=== PATIENT | male | born 1960 | race Caucasian/White ===

== ENCOUNTER → 2016-11-23 | Outpatient (CLI) | payer OTHER ==
[~2016-11-23] MED LIST: ACULAR 0.5100 DROP/5 LEFT EYE; COUMADIN,JANTOVE5 MG PO; DICLOFENAC SODI75 MG PO; DOXYCYCLINE; INDOCIN25 MG PO; KEFLEX500 MG PO; LOVENOX80 MG/0.8 SC; MOBIC7.5 MG PO; NICOTINE PATCH1 EAC2 TD; NOHOMEMEDS; NORTRIPTYLINE H25 MG PO; Naprosyn PO; Neurontin PO; OXYCODONE HCL10 MG PO; OXYCODONE-APAP1 EACH PO; PERCOCET 5/31 TABLET PO; SPIRIVA RESPIMAT4 GM IH; TUDORZA PRESS400 MCG IH; VIGAMOX 0.60 DROP/3 LEFT EYE; ZOLPIDEM TARTRAT5 MG PO
== END | disposition home or self-care (01) ==
LOC: RES 10:00
DX: J98.4 Other disorders of lung (principal)
CPT/HCPCS: 94060; 94726; 94729

== ENCOUNTER 2017-05-04 12:27 | Emergency (ER) | payer OTHER ==
[~2017-05-04] VITALS: Ht 188 cm; Wt 77.8 kg
[2017-05-04 13:34] LABS: BASOPHIL (%) 0.8 % (0-1); EOSINOPHIL (%) 3.3 % (0-5); EOSINOPHIL COUNT 0.2 K/uL (0-0.3); HEMATOCRIT 45.1 % (38.0-50.0); HEMOGLOBIN 15.9 G/DL (12.5-16.6); IMMATURE GRANULOCYTE (%) 0.2 % (0.0-0.7); LYMPHOCYTE (%) 34.3 % (15-42); LYMPHOCYTE COUNT 1.8 K/uL (1.0-2.8); MCH 34.6 PG (29.0-34.0); MCHC 35.3 G/DL (30.0-36.0); MCV 98.3 FL (86-99); MONOCYTE (%) 9.4 % (3-12); MONOCYTE COUNT 0.5 K/uL (0-0.8); NEUTROPHIL COUNT 2.7 K/uL (1.8-6.4); PLATELET COUNT 140 K/uL (156-360); RBC DIS.WIDTH-CV 12.3 % (11.8-14.6); RBC DIS.WIDTH-SD 44.6 % (39-53); RED BLOOD COUNT 4.59 M/uL (4.00-5.50); WHITE BLOOD COUNT 5.2 K/uL (4.1-10.2)
[2017-05-04 13:37] LABS: APPEARANCE CLEAR ((CLEAR)); BILIRUBIN NEGATIVE; BLOOD NEGATIVE; COLOR STRAW ((YELLOW)); GLUCOSE (STRIP) NEGATIVE; KETONES NEGATIVE; LEUKOCYTES NEGATIVE; NITRITE NEGATIVE; PROTEIN (STRIP) NEGATIVE; SPECIFIC GRAVITY 1.008 (1.000-1.030); UROBILINOGEN 0.2 MG/DL (0.2-1.0)
[2017-05-04 13:43] LABS: ALBUMIN 4.4 g/dL (3.2-4.8); CHLORIDE 103 mEq/L (99-109); SODIUM 138 mEq/L (136-147)
[2017-05-04 13:46] LABS: GLUCOSE 101 mg/dL (70-99); TOTAL PROTEIN 7.4 g/dL (6.4-8.3)
[2017-05-04 13:48] LABS: TOTAL BILIRUBIN 1.1 mg/dL (0.0-1.0)
[2017-05-04 13:49] LABS: ALKALINE PHOSPHATASE 81 IU/L (3-129); CREATININE 0.8 mg/dL (0.6-1.3); GFR ESTIMATE (CALCULATED) > 59 mL/min/ (58.99-99999)
[2017-05-04 13:50] LABS: UREA NITROGEN (BUN) 10 mg/dL (9-23)
[2017-05-04 13:51] LABS: AST (GOT) 62 IU/L (2-34)
[2017-05-04 13:52] LABS: ALT (GPT) 75 IU/L (3-49)
[2017-05-04 13:53] LABS: LIPASE 16 U/L (1.0-51.0)
[2017-05-04] MEDS ORDERED: FLAGYL500 MG PO (14:44)
[2017-05-04] MEDS ORDERED: BENTYL20 MG PO (14:44)
[2017-05-04] MEDS ORDERED: CIPRO500 MG PO (14:44)
[2017-05-04 14:55] VITALS: BP 147/84
== END 2017-05-04 14:57 | disposition home or self-care (01) ==
LOC: EME 12:27
PROVIDERS: Physician Assistant
DX: R10.32 Left lower quadrant pain (principal); N50.812 Left testicular pain; F17.200 Nicotine dependence, unspecified, uncomplicated
CPT/HCPCS: 74176; 76870; 80053; 81003; 83690; 85025; 99281; 99284; J1885